=== PATIENT | female | born 1995 | race Caucasian/White ===

== ENCOUNTER 2018-09-15 15:17 | Emergency (ER) | payer OTHER ==
[~2018-09-15] VITALS: Ht 162.6 cm; Wt 83.4 kg
[2018-09-15 16:17] LABS: BASO # 0.1 10^3/uL (0.0-0.2); BASO % 0.7 % (0.0-1.0); EOS # 0.4 10^3/uL (0.0-0.50); EOS % 5.1 % (0.0-3.0); HEMATOCRIT 45.1 % (36.0-47.0); HEMOGLOBIN 15.7 g/dl (12.0-15.5); LYMPH # 1.9 10^3/uL (1.5-6.5); LYMPH % 22.6 % (24.0-44.0); MEAN CORPUSCULAR HEMOGLOBIN 32.4 pg (27.0-33.0); MEAN CORPUSCULAR HGB CONC 34.8 g/dl (32.0-36.5); MONO # 0.7 10^3/uL (0.0-0.8); MONO % 7.8 % (0.0-5.0); NEUTROPHILS # 5.3 10^3/uL (1.8-7.7); NEUTROPHILS % 63.4 % (36.0-66.0); PLATELET COUNT, AUTOMATED 296 10^3/uL (150-450); RED BLOOD COUNT 4.85 10^6/uL (4.00-5.40); WHITE BLOOD COUNT 8.4 10^3/uL (4.0-10.0)
[2018-09-15 16:48] LABS: ALBUMIN 4.5 GM/DL (3.2-5.2); ALT/SGPT 23 U/L (12-78); AMYLASE 37 U/L (25-115); BILIRUBIN,DIRECT 0.2 MG/DL (0.0-0.2); BILIRUBIN,TOTAL 1.1 MG/DL (0.2-1.0); BLOOD UREA NITROGEN 14 MG/DL (7-18); CALCIUM LEVEL 9.8 MG/DL (8.5-10.1); CARBON DIOXIDE LEVEL 28 MEQ/L (21-32); CHLORIDE LEVEL 106 MEQ/L (98-107); CREATININE FOR GFR 0.81 MG/DL (0.55-1.30); GLOMERULAR FILTRATION RATE > 60.0 (>60); GLUCOSE, FASTING 79 MG/DL (70-100); LIPASE 86 U/L (73-393); POTASSIUM SERUM 4.4 MEQ/L (3.5-5.1); SODIUM LEVEL 139 MEQ/L (136-145); TOTAL PROTEIN 8.1 GM/DL (6.4-8.2)
[2018-09-15] MEDS ORDERED: ONDANSETRON 4MG/2ML VIAL (J2405) IV ONE (17:30)
[2018-09-15] MEDS ORDERED: NS 1,000 ML IV ONE (17:30)
--- NOTE | 2018-09-15 18:57 | REPVR ---
EXAM: US Abdomen Limited, Right Upper Quadrant EXAM DATE/TIME: 09/15/2018 6:10 PM CLINICAL HISTORY: 23 years old, female; Abdominal pain; Generalized; Additional info: N/v. Abd p eating TECHNIQUE: Imaging protocol: Real-time ultrasound of the abdomen with image documentation. Examination was focused on the right upper quadrant. COMPARISON: No relevant prior studies available. FINDINGS: Liver: The echotexture of the liver is heterogeneous and predominantly increased. The liver measures at least 17 cm in craniocaudal span. Gallbladder: Normal. No gallstones. There is no gallbladder wall thickening. Common bile duct: Common bile duct measures 3 mm. Pancreas: Visualized pancreas is unremarkable. Right kidney: Right kidney measures 10.4 x 3.7 by by 4.7 cm. No hydronephrosis. IMPRESSION: Heterogeneous increased echotexture of the liver which is slightly enlarged suggestive of underlying infiltrative process such as hepatic steatosis. 2. No gallstones. No ductal dilatation. Electronically signed by: Margi Clemente On 09/15/2018 18:57:19 PM
[2018-09-15] MEDS ORDERED: ISOVUE-370 76% 100ML VIAL (Q9967) As Ordered ONE (19:21)
--- NOTE | 2018-09-15 20:04 | REP ---
Clinical: Abdominal pain. Technique: Axial contrast enhanced images from the lung bases to the pubic symphysis with coronal and sagittal re-formations using 100 ml Isovue 370 intravenous contrast material. Findings: Lung bases are clear. Visualized heart and pericardium normal. Liver, spleen, pancreas, gallbladder, bilateral adrenal glands and kidneys are normal. The enteric system is without obstruction or acute inflammatory process. Normal terminal ileum and appendix identified in the right lower quadrant. Pelvis demonstrates small amount of free fluid along with 1.9 cm rim enhancing right ovarian cyst and surrounding fluid suggesting the possibility of small ruptured follicle. Uterus and left adnexa appear normal. Bladder is unremarkable. No significant ascites. No free air. No adenopathy. Abdominal aorta and vasculature normal and without aneurysm or dissection. Musculoskeletal structures are intact. Impression: 1. Possible small ruptured right ovarian follicle. 2. No acute abdominopelvic pathology otherwise appreciated. Electronically Signed by Arnulfo French MD 09/15/2018 07:55 P
[2018-09-15] MEDS ORDERED: CIPR-249 PO (20:10)
[2018-09-15 20:24] VITALS: BP 117/76
== END 2018-09-15 20:33 | disposition home or self-care (01) ==
LOC: M ED 15:17
DX: N39.0 Urinary tract infection, site not specified (principal); N83.01 Follicular cyst of right ovary; R11.0 Nausea; R51 Headache; F41.9 Anxiety disorder, unspecified; Z87.891 Personal history of nicotine dependence; Z91.018 Allergy to other foods
CPT/HCPCS: 74177; 76705; 80048; 80076; 81001; 82150; 83690; 84702; 85025; 87086; 96361; 96374; 99284; J2405; Q9967

== ENCOUNTER 2018-12-07 12:21 | Emergency (ER) | payer OTHER ==
[~2018-12-07] VITALS: Ht 162.6 cm; Wt 73.6 kg
[~2018-12-07 12:21] MED LIST: CIPR-249 PO
[2018-12-07] MEDS ORDERED: ONDA4TAB6 PO (12:27)
[2018-12-07] MEDS ORDERED: ZOLO100T PO (12:27)
[2018-12-07] MEDS ORDERED: PREN1CHW6 PO (12:27)
[2018-12-07 15:39] LABS: BASO % 0.3 % (0.0-1.0); EOS # 0.4 10^3/uL (0.0-0.50); EOS % 4.5 % (0.0-3.0); HEMATOCRIT 38.6 % (36.0-47.0); HEMOGLOBIN 13.8 g/dl (12.0-15.5); LYMPH # 1.8 10^3/uL (1.5-6.5); LYMPH % 22.8 % (24.0-44.0); MEAN CORPUSCULAR HEMOGLOBIN 33.2 pg (27.0-33.0); MEAN CORPUSCULAR HGB CONC 35.8 g/dl (32.0-36.5); MEAN CORPUSCULAR VOLUME 92.8 fl (80.0-96.0); MONO # 0.5 10^3/uL (0.0-0.8); NEUTROPHILS # 5.1 10^3/uL (1.8-7.7); PLATELET COUNT, AUTOMATED 231 10^3/uL (150-450); RED BLOOD COUNT 4.16 10^6/uL (4.00-5.40); WHITE BLOOD COUNT 7.8 10^3/uL (4.0-10.0)
[2018-12-07 16:08] LABS: BLOOD UREA NITROGEN 4 MG/DL (7-18); CALCIUM LEVEL 9.5 MG/DL (8.5-10.1); CARBON DIOXIDE LEVEL 22 MEQ/L (21-32); CHLORIDE LEVEL 108 MEQ/L (98-107); CREATININE FOR GFR 0.52 MG/DL (0.55-1.30); GLOMERULAR FILTRATION RATE > 60.0 (>60); GLUCOSE, FASTING 71 MG/DL (70-100); POTASSIUM SERUM 3.9 MEQ/L (3.5-5.1); SODIUM LEVEL 139 MEQ/L (136-145)
[2018-12-07] MEDS ORDERED: MULTIVITAMIN -ADULT INJECTION 10 ML, THIAMINE INJection 100 MG, FOLIC ACID 1 MG in NS 1... IV ONE (16:15)
[2018-12-07] MEDS ORDERED: PROMETHAZINE INJ 25 MG/ML VIAL (J2550) IV ONE (16:15)
[2018-12-07 17:23] LABS: ALBUMIN 3.6 GM/DL (3.2-5.2); ALT/SGPT 15 U/L (12-78); BILIRUBIN,DIRECT 0.1 MG/DL (0.0-0.2); BILIRUBIN,TOTAL 0.4 MG/DL (0.2-1.0); HCG, SERUM QUANTITATIVE 24501 MIU/ML; TOTAL PROTEIN 7.4 GM/DL (6.4-8.2)
[2018-12-07] MEDS ORDERED: PROM25SU PR (20:44)
[2018-12-07 21:11] VITALS: BP 113/70
== END 2018-12-07 21:17 | disposition home or self-care (01) ==
LOC: M ED 12:21
DX: O21.0 Mild hyperemesis gravidarum (principal); O99.342 Other mental disorders complicating pregnancy, second trimester; F31.9 Bipolar disorder, unspecified; F41.9 Anxiety disorder, unspecified; Z3A.14 14 weeks gestation of pregnancy; Z79.899 Other long term (current) drug therapy; Z91.018 Allergy to other foods; Z87.891 Personal history of nicotine dependence
CPT/HCPCS: 80048; 80076; 81001; 84702; 85025; 86850; 86900; 86901; 87086; 96374; 96375; 99284; J3411